=== PATIENT | female | born 1965 | race Caucasian/White ===

== ENCOUNTER 2017-01-08 11:44 | Day surgery (SDC) | payer OTHER ==
[2017-01-06 14:25] VITALS: BMI 29.8
[~2017-01-08 11:44] MED LIST: ACETAMINOPHEN TAB 500 MG TAB PO ONE; DEXAMETHASONE SOD PHOSPHATE 10 MG/ML 1 ML VIAL IV ONE; DEXAMETHASONE SOD PHOSPHATE 4 MG/ML 1 ML VIAL IV ONE; FAMOTIDINE 20 MG/2 ML VIAL IV ONE; HYDROmorphone 1 MG/ML 1 ML SYRINGE IVP PRN; LACTATED RINGERS 1,000 ML IV SCH; LIDOCAINE 1% 20 ML VIAL (10MG/ML) FOR IV START INTRADERMA PRN; MIDAZOLAM 2 MG/2 ML VIAL IV PRN; ONDANSETRON 4 MG/2 ML VIAL IVP ONE; SCOPOLAMINE 1.5MG/72HR PATCH TRANSDERM ONE; ceFAZolin 2 GM in SODIUM CHLORIDE 0.9% 100 ML IVPB ONE
[2017-01-08] MEDS ORDERED: PROPOFOL 10 MG/ML 20 ML VIAL IV ONE (15:07)
[2017-01-08] MEDS ORDERED: MIDAZOLAM 2 MG/2 ML VIAL ONE (15:07)
[2017-01-08] MEDS ORDERED: SUCCINYLCHOLINE CHLORIDE VIAL 200 MG/10 ML VIAL IV ONE (15:07)
[2017-01-08] MEDS ORDERED: fentaNYL (PF) 50 MCG/ML 2 ML AMP ONE (15:07)
[2017-01-08] MEDS ORDERED: LIDOCAINE 1% INJ 10MG/ML (20 ML MDV) ONE (15:07)
[2017-01-08] MEDS ORDERED: LIDOCAINE 1%-EPI 1:100,000 20 ML VIAL SQ ONE ×2 (15:46)
[2017-01-08] MEDS ORDERED: BUPIVACAIN-EPI 0.5%-1:200,000 30 ML VIAL SQ ONE ×2 (15:46)
--- NOTE | 2017-01-08 17:11 | P.OP ---
Date of Procedure: 01/08/17 Preoperative Diagnosis: Left thyroid nodule Fate 3 suspicious Postoperative Diagnosis: Same Procedure(s) Performed: Left thyroid lobectomy with the use of a nerve integrity monitor Anesthesia: MARVA Surgeon: Alhaji Olson Estimated Blood Loss (ml): 20 Pathology: other (Left thyroid lobe) Condition: stable Disposition: PACU Indications for Procedure: This patient was found have a thyroid nodule and a fine-needle aspiration came back as a Fate 3. Genetic molecular testing was positive giving us in approximately 40% chance of a differentiated thyroid carcinoma. The lesion is relatively small measuring 1.1 cm. I did review the results of the patient's pathology risks benefits alternative therapies. Risks of bleeding, infection, need for secondary surgery, vocal cord paralysis, calcium abnormalities etc. were all discussed. Consent was obtained and all questions were answered. Operative Findings: Left thyroid nodule was noted. Left lobe was removed. Recurrent laryngeal nerve was intact. Description of Procedure: OPERATIVE FINDINGS- LEFT Thyroid nodule identified and consistent with the ultrasound. SUMMARY: This patient was taken to the operative room and placed in a standard thyroidectomy position with the head elevated and the head in slight extension. The neck was sterilely prepped and draped in the usual fashion. We used a DuraPrep drape. The patient underwent preoperative antibiotic administration. Patient had a functioning IV line in and was monitored throughout the entire case by the department of anesthesia. An incision was was made after it was marked and the previous scar was removed with a 15 blade and delicate plastic scissors and a Brown-Adson forceps. Dissection was carried down through the platysmas muscle to the strap muscles and superior and inferiorly based flaps were developed. We elevated the skin and subcutaneous flaps from the hyoid to the manubrium. We identified the strap muscles in the midline. We divided the strap muscles and utilized self-retaining retractors. We identified the isthmus. An dissection was carried out on the LEFT thyroid lobe. We utilized a nerve integrity monitor during this entire case. Our dissection was carried out inferiorly and the recurrent laryngeal nerve was identified and monitored and watched through the entire case to preserve this structure. We confirmed its identity with use of a probe with the nerve integrity monitor. We also confirmed its integrity at the end of the case prior to closure. Our dissection continued superiorly where the middle thyroid vessels were again applied and ligated with a ligature. The superior vascular pedicle was also ligated with use of the LigaSure. The parathyroid glands were identified and reflected away from the thyroid gland. The parathyroid glands appeared healthy. They had good blood supply. We continued our dissection of the thyroid off of Lawrence's ligament. The nodule was also identified and was adherent to the recurrent laryngeal nerve but was dissected off the nerve carefully and completely. The left thyroid lobe was completely removed and no remnant thyroid tissue was identified. There was no signs of any lymphadenopathy noted. Gelfoam was placed into the surgical site after a copious amount of irrigation. The strap muscles were reapproximated with use of a 40 rapid Vicryl in a running locking fashion. We elected not to place a drain as there was minimal bleeding. We closed the platysmas layer with use of 4-0 Vicryl in a running locking fashion. The subcutaneous skin was closed with 4-0 Monocryl. The final skin closure was with a 6-0 Prolene. Steri-Strips were applied. A modest pressure dressing utilizing Medipore tape was also applied. The patient tolerated this procedure well and was taken to postanesthesia recovery in excellent condition. The recurrent laryngeal nerve was tested prior to closure and was functioning with use of an NIM monitor.
[2017-01-08] MEDS ORDERED: ONDANSETRON 4 MG/2 ML VIAL IVP PRN (17:13)
[2017-01-08] MEDS ORDERED: NALOXONE 0.4 MG/ML 1 ML VIAL IV PRN (17:13)
[2017-01-08] MEDS ORDERED: ACETAMINOPHEN TAB 325 MG TAB PO PRN (17:13)
[2017-01-08] MEDS ORDERED: PROMETHAZINE 25 MG TAB PO PRN (17:13)
[2017-01-08] MEDS ORDERED: methylPREDNISolone SOD SUCCI 125 MG/2 ML VIAL IVP ONE (17:36)
[2017-01-08] MEDS: HYDROcodone/APAP 5-325MG 1 EACH TAB PO PRN (18:30)
--- NOTE | 2017-01-08 18:30 | P.PN ---
Subjective Principal diagnosis: Recheck This patient has developed a little hoarseness after surgery. I placed a pediatric laryngoscope and viewed the vocal cords. The left vocal cord is weak. The nerve integrity monitor demonstrated good function and I expect this to be a temporary issue. We will treat her with steroids and I did discuss with her and her family. The nerve was right on the tumor and required some stretching to separate the nerve from the tumor and I anticipate that this stretching is the probable cause of this weakness. Objective - Vital Signs Vital signs: Vital Signs Temp 98 F 01/08/17 17:09 Pulse 89 01/08/17 18:00 Resp 16 01/08/17 18:00 BP 136/74 01/08/17 18:00 Pulse Ox 94 L 01/08/17 18:00 Intake & Output 01/07/17 01/08/17 01/08/17 18:59 06:59 18:59 Intake Total 1400 Output Total 10 Balance 1390 Intake: IV 1400 Output: Estimated Blood Loss 10 - Constitutional General appearance: Present: average body habitus - EENT EENT Comment(s): Voice is hoarse. Incision looks good. No hematomas noted. Eyes: Present: PERRLA ENT: Present: normal oropharynx - Integumentary Integumentary: Present: normal turgor - Psychiatric Psychiatric: Present: A&O x's 3 Assessment and Plan (1) Post-operative pain Status: Acute Plan: Her pain is being well controlled with [employer]. She has a slight weakness to the left vocal cord with some hoarseness which I anticipate to be a temporary issue. Steroid therapy will be instituted. Time with Patient: Less than 30
[2017-01-08] MEDS: D5-0.45% NACL WITH KCL 20MEQ/L 1,000 ML IV SCH (19:36)
[2017-01-08] MEDS: methylPREDNISolone SOD SUCCI 125 MG/2 ML VIAL IV SCH (23:43)
[2017-01-08] MEDS: ceFAZolin 2 GM in SODIUM CHLORIDE 0.9% 100 ML IVPB SCH (23:45)
[2017-01-09] MEDS: HYDROcodone/APAP 5-325MG 1 EACH TAB PO PRN ×2 (00:36→07:34)
[2017-01-09] MEDS: methylPREDNISolone SOD SUCCI 125 MG/2 ML VIAL IV SCH (05:54)
--- NOTE | 2017-01-09 06:45 | P.DS ---
Providers Date of admission: Jan 08 2017 Expected date of discharge: 01/09/17 Attending physician: Alhaji Olson Consults: none Primary care physician: Rosangela Pierre - Discharge Diagnosis(es) (1) Post-operative pain Pt has done well after surgery and is ready to be discharged Current Visit: Yes Status: Acute Hospital Course: Uneventful doing well calcium's are fine Pertinent Studies: calcium Procedures: thyroid lobectomy L Patient Condition at Discharge: Good Plan - Discharge Summary New Discharge Prescriptions: Amoxicillin/Potassium Clav [Augmentin 875-125 Tablet] 1 each PO Q12HR #20 tab Hydrocodone/Acetaminophen [[place] 5-325] 1 - 2 each PO Q6HR PRN #50 tab PRN Reason: Pain predniSONE 20 mg PO DIRECTED #5 tab predniSONE 20 mg PO DIRECTED #15 tab Discharge Medication List Dexlansoprazole [Dexilant] 60 mg PO Q48H 10/01/15 [History] Natural Hormone Replacement PRN 01/06/17 [History] Npthyroid 60 mg PO BID 01/06/17 [History] Amoxicillin/Potassium Clav [Augmentin 875-125 Tablet] 1 each PO Q12HR #20 tab [Rx] Hydrocodone/Acetaminophen [[place] 5-325] 1 - 2 each PO Q6HR PRN #50 tab 01/08/17 [Rx] predniSONE 20 mg PO DIRECTED #15 tab 01/08/17 [Rx] predniSONE 20 mg PO DIRECTED #5 tab 01/08/17 [Rx] Follow up Appointment(s)/Referral(s): Alhaji Olson DO [Doctor of Osteopathic Medicine] - 1 Week Patient Instructions/Handouts: *Surgery [facility] - ([facility]) Thyroidectomy Post-Op Instructions Activity/Diet/Wound Care/Special Instructions: Rest with head elevated No heavy lifting or bending Keep Steri-Strips dry Do not extend her head backwards Call me if it is any problems Drink lots of water Take a deep breath before swallowing Discharge Disposition: HOME SELF-CARE
[2017-01-09] MEDS: ceFAZolin 2 GM in SODIUM CHLORIDE 0.9% 100 ML IVPB SCH (07:59)
[2017-01-09 08:15] VITALS: BP 153/86; PULSE 102; RESP 20; TEMP 97
[2017-01-09] MEDS: D5-0.45% NACL WITH KCL 20MEQ/L 1,000 ML IV SCH (10:30)
== END 2017-01-09 10:30 | disposition home or self-care (01) ==
LOC: OR 11:44 → 6PED 16:57 → OR 01-09 10:30
PROVIDERS: ATTEND Otolaryngology
DX: C73 Malignant neoplasm of thyroid gland (principal); K21.9 Gastro-esophageal reflux disease without esophagitis; Z79.899 Other long term (current) drug therapy; Z79.51 Long term (current) use of inhaled steroids; Z91.018 Allergy to other foods; Z91.09 Other allergy status, other than to drugs and biological substances
CPT/HCPCS: 82310 ×2; 88307; 60220; C1762; J2250; J0330; J1100; J2930 ×2; J0690 ×2; J2405; J2001; J3010; J2704

== ENCOUNTER → 2017-04-08 | Outpatient (CLI) | payer OTHER | END | disposition home or self-care (01) | LOC: LABWHC1 17:15 | PROVIDERS: ATTEND Otolaryngology | DX: E03.9 Hypothyroidism, unspecified (principal) | CPT/HCPCS: 36415; 84439; 84443 ==

== ENCOUNTER → 2017-04-13 | Outpatient (CLI) | payer OTHER ==
--- NOTE | 2017-04-14 09:29 | MM ---
Reason for exam: screening (asymptomatic). Last mammogram was performed 1 year and 3 months ago. History: Patient is postmenopausal and has history of other cancer at age 38. Family history of breast cancer in maternal aunt at age 50. Physical Findings: A clinical breast exam by your physician is recommended on an annual basis and results should be correlated with mammographic findings. MG 3D Screening Mammo W/Cad Bilateral CC and MLO view(s) were taken. Prior study comparison: January 10, 2016, bilateral MG 3d screening mammo w/cad. July 14, 2014, right breast MG work up mamm w CAD RT. July 10, 2014, bilateral MG screening mammo w CAD. The breast tissue is heterogeneously dense. This may lower the sensitivity of mammography. Finding: There are few typically benign round calcifications in the left breast. Asymmetric breast tissue in the right breast is stable. There is no discrete abnormality. ASSESSMENT: Benign, BI-RAD 2 RECOMMENDATION: Routine screening mammogram of both breasts in 1 year.
== END | disposition home or self-care (01) ==
LOC: RADMAMWWP 10:55
PROVIDERS: ATTEND Internal Medicine
DX: Z12.31 Encounter for screening mammogram for malignant neoplasm of breast (principal)
CPT/HCPCS: 77063; G0202

== ENCOUNTER → 2017-05-22 | Outpatient (CLI) | payer OTHER | END | disposition home or self-care (01) | LOC: LABWHC1 13:53 | PROVIDERS: ATTEND Otolaryngology | DX: E03.9 Hypothyroidism, unspecified (principal) | CPT/HCPCS: 36415; 84439; 84443 ==

== ENCOUNTER → 2017-06-26 | Outpatient (CLI) | payer OTHER | END | disposition home or self-care (01) | LOC: LABWHC1 10:11 | PROVIDERS: ATTEND Otolaryngology | DX: E03.9 Hypothyroidism, unspecified (principal) | CPT/HCPCS: 36415; 84439; 84443 ==

== ENCOUNTER → 2017-09-28 | Outpatient (CLI) | payer OTHER ==
[2017-09-28 11:07] LABS: T4, Free (Free Thyroxine) 0.93 ng/dL (0.78-2.19)
== END | disposition home or self-care (01) ==
LOC: LABWHC1 10:23
PROVIDERS: ATTEND Otolaryngology
DX: E03.9 Hypothyroidism, unspecified (principal)
CPT/HCPCS: 36415; 84439; 84443

== ENCOUNTER → 2018-02-08 | Outpatient (CLI) | payer OTHER ==
[2018-02-08 09:04] LABS: T4, Free (Free Thyroxine) 0.86 ng/dL (0.78-2.19)
== END | disposition home or self-care (01) ==
LOC: LABWHC1 07:11
PROVIDERS: ATTEND Obstetrics & Gynecology
DX: E03.9 Hypothyroidism, unspecified (principal); N95.1 Menopausal and female climacteric states
CPT/HCPCS: 36415; 82607; 82670; 83001; 84403; 84439; 84443

== ENCOUNTER 2018-02-14 10:17 | Emergency (ER) | payer OTHER ==
[2018-02-14 10:33] VITALS: BP 149/90; PULSE 88; RESP 18; TEMP 99.2
[2018-02-14] MEDS ORDERED: ACETAMINOPHEN TAB 500 MG TAB PO STA (10:47)
[2018-02-14 11:14] LABS: Basophils % (A) 0 %; Eosinophils # (A) 0.2 k/uL (0-0.7); Eosinophils % (A) 2 %; HCT 42.7 % (34.0-46.0); HGB 14.8 gm/dL (11.4-16.0); Lymphocytes # (A) 1.9 k/uL (1.0-4.8); Lymphocytes % (A) 16 %; MCH 31.2 pg (25.0-35.0); MCHC 34.7 g/dL (31.0-37.0); Mean Platelet Volume 6.9; Monocytes # (A) 0.6 k/uL (0-1.0); Monocytes % (A) 5 %; Neutrophils # (A) 8.8 k/uL (1.3-7.7); Neutrophils % (A) 76 %; Platelet Count 243 k/uL (150-450); RBC 4.74 m/uL (3.80-5.40); RDW 13.6 % (11.5-15.5); WBC 11.6 k/uL (3.8-10.6)
[2018-02-14 11:23] LABS: ALT 31 U/L (9-52); AST 20 U/L (14-36); Albumin 4.1 g/dL (3.5-5.0); Alkaline Phosphatase 65 U/L (38-126); Anion Gap 12 mmol/L; Blood Urea Nitrogen 12 mg/dL (7-17); Calcium 9.4 mg/dL (8.4-10.2); Carbon Dioxide 28 mmol/L (22-30); Chloride 102 mmol/L (98-107); Glucose 101 mg/dL (74-99); Potassium 3.7 mmol/L (3.5-5.1); Sodium 142 mmol/L (137-145); Total Bilirubin 0.4 mg/dL (0.2-1.3); Total Protein 6.4 g/dL (6.3-8.2)
--- NOTE | 2018-02-14 11:33 | XR ---
PROCEDURE: XR shoulder complete RT 3 views DATE AND TIME: 02/14/2018 11:16 AM REFERRING PHYSICIAN: Cruzito Artis MD CLINICAL INDICATION: [facility], Pain TECHNIQUE: Department protocol. COMPARISON: None FINDINGS: There is no fracture or malalignment. The soft tissues are unremarkable. IMPRESSION: NO ACUTE PROCESS.
--- NOTE | 2018-02-14 12:02 | ED ---
Upper Extremity HPI - General Chief Complaint: Extremity Injury, Upper Stated Complaint: Shoulder Injury Time Seen by Provider: 02/14/18 10:37 Source: patient Mode of arrival: ambulatory Limitations: no limitations - History of Present Illness Initial Comments: 2 years old female complains about right shoulder pain she was working in the yard couple days ago no fall no trauma she feel that her right shoulder has some swelling and she has a hard time ambulating the right arm she is also concerned about a blood clot there. No shortness of breath no chest pain no history of firm DVT or PE in the past. - Related Data Home Medications Medication Instructions Recorded Confirmed Npthyroid 100 mcg PO DAILY 01/06/17 02/14/18 Allergies Allergy/AdvReac Type Severity Reaction Status Date / Time gluten Allergy Diarrhea Verified 02/14/18 10:33 Review of Systems ROS Statement: Those systems with pertinent positive or pertinent negative responses have been documented in the HPI. ROS Other: All systems not noted in ROS Statement are negative. 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 removed, removed left lobe of thyroid Past Anesthesia/Blood Transfusion Reactions: No Reported Reaction Past Psychological History: No Psychological Hx Reported Smoking Status: Never smoker Past Alcohol Use History: Occasional Past Drug Use History: None Reported - Past Family History Mother Additional Family Medical History / Comment(s): stroke age 65, dementia Father Family Medical History: Cancer Additional Family Medical History / Comment(s): melanoma with mets, kidney General Exam - General Exam Comments Initial Comments: General: The patient is awake and alert, in no distress, and does not appear acutely ill. Skin: Skin is warm and dry and no rashes or lesions are noted. Eye: Pupils are equal, round and reactive to light, extra-ocular movements are intact; there is normal conjunctiva bilaterally. Ears, nose, mouth and throat: There are moist mucous membranes and no oral lesions. Neck: The neck is supple, there is no tenderness or JVD. Cardiovascular: There is a regular rate and rhythm. No murmur, rub or gallop is appreciated. Respiratory: To auscultation bilateral, no wheezing no rhonchi no distress respiratory cooper noticed Gastrointestinal: Soft, non-distended, non-tender abdomen without masses or organomegaly noted. There is no rebound or guarding present. Bowel sounds are unremarkable. Back: There is no tenderness to palpation in the midline. There is no obvious deformity. Musculoskeletal: Range of motion of the right shoulder is compromised especially abduction and internal rotation, patient is tender over the deltoid no tenderness noticed over the before meals joint area distal arm has no neurovascular compromise cord radial and ulnar pulses and good capillary refill no motor deficits noticed in the distal right upper extremity Neurological: CN II-XII intact, Cranial nerves III through XII are intact. There are no obvious motor or sensory deficits. Coordination appears grossly intact. Speech is normal. Psychiatric: Cooperative, appropriate mood & affect, normal judgment. Limitations: no limitations Course Vital Signs 02/14/18 10:30 Temperature 99.2 F Pulse Rate 88 Respiratory 18 Rate Blood Pressure 149/90 O2 Sat by Pulse 99 Oximetry Reassessment revealed d-dimer is normal CBC is unremarkable right shoulder x- rays normal these findings were discussed with the patient, patient was advised to use Tylenol or Motrin on an as-needed basis increase the activity at the right shoulder as tolerated and follow with family doctor or return to the ER if symptoms get worse Medical Decision Making - Lab Data Result diagrams: 02/14/18 11:04 02/14/18 11:04 Lab Results 02/14/18 02/14/18 02/14/18 Range/Units 11:04 11:04 11:04 WBC 11.6 H (3.8-10.6) k/uL RBC 4.74 (3.80-5.40) m/uL Hgb 14.8 (11.4-16.0) gm/dL Hct 42.7 (34.0-46.0) % MCV 90.0 (80.0-100.0) fL MCH 31.2 (25.0-35.0) pg MCHC 34.7 (31.0-37.0) g/dL RDW 13.6 (11.5-15.5) % Plt Count 243 (150-450) k/uL Neutrophils % 76 % Lymphocytes % 16 % Monocytes % 5 % Eosinophils % 2 % Basophils % 0 % Neutrophils # 8.8 H (1.3-7.7) k/uL Lymphocytes # 1.9 (1.0-4.8) k/uL Monocytes # 0.6 (0-1.0) k/uL Eosinophils # 0.2 (0-0.7) k/uL Basophils # 0.0 (0-0.2) k/uL D-Dimer 0.19 (<0.60) mg/L FEU Sodium 142 (137-145) mmol/L Potassium 3.7 (3.5-5.1) mmol/L Chloride 102 (98-107) mmol/L Carbon Dioxide 28 (22-30) mmol/L Anion Gap 12 mmol/L BUN 12 (7-17) mg/dL Creatinine 0.68 (0.52-1.04) mg/dL Est GFR (CKD-EPI)AfAm >90 (>60 ml/min/1.73 sqM) Est GFR (CKD-EPI)NonAf >90 (>60 ml/min/1.73 sqM) Glucose 101 H (74-99) mg/dL Calcium 9.4 (8.4-10.2) mg/dL Total Bilirubin 0.4 (0.2-1.3) mg/dL AST 20 (14-36) U/L ALT 31 (9-52) U/L Alkaline Phosphatase 65 (38-126) U/L Total Protein 6.4 (6.3-8.2) g/dL Albumin 4.1 (3.5-5.0) g/dL Disposition Clinical Impression: Right shoulder tendinitis Disposition: HOME SELF-CARE Condition: Good Instructions: Tendinitis (ED) Is patient prescribed a controlled substance at d/c from ED?: No Referrals: Rosangela Pierre MD [Primary Care Provider] - 1-2 days
== END 2018-02-14 12:19 | disposition home or self-care (01) ==
LOC: EC 10:17
DX: M75.91 Shoulder lesion, unspecified, right shoulder (principal); E07.9 Disorder of thyroid, unspecified; Z85.850 Personal history of malignant neoplasm of thyroid; Z85.828 Personal history of other malignant neoplasm of skin; Z79.899 Other long term (current) drug therapy; Z91.048 Other nonmedicinal substance allergy status
CPT/HCPCS: 36415; 80053; 85025; 85379; 99283

== ENCOUNTER → 2018-07-01 | Outpatient (CLI) | payer OTHER ==
[2018-07-01 15:44] LABS: LDL Cholesterol,Calculated 149.8 mg/dL (0.0-131.0); VLDL Calculation 25.2 mg/dL (5.00-40.00)
== END | disposition home or self-care (01) ==
LOC: LABWHC1 07:03
PROVIDERS: ATTEND Internal Medicine
DX: E55.9 Vitamin D deficiency, unspecified (principal); E78.5 Hyperlipidemia, unspecified
CPT/HCPCS: 36415; 80061; 82306

== ENCOUNTER → 2018-08-30 | Outpatient (CLI) | payer OTHER ==
--- NOTE | 2018-09-02 10:41 | MM ---
Reason for exam: screening (asymptomatic). Last mammogram was performed 1 year and 5 months ago. History: Patient is postmenopausal and has history of other cancer at age 38. Family history of breast cancer in maternal aunt at age 50. Physical Findings: A clinical breast exam by your physician is recommended on an annual basis and results should be correlated with mammographic findings. MG 3D Screening Mammo W/Cad Bilateral CC and MLO view(s) were taken. Prior study comparison: April 13, 2017, bilateral MG 3d screening mammo w/cad. January 10, 2016, bilateral MG 3d screening mammo w/cad. The breast tissue is heterogeneously dense. This may lower the sensitivity of mammography. Stable benign calcifications. There is no discrete abnormality. No significant changes when compared with prior studies. ASSESSMENT: Benign, BI-RAD 2 RECOMMENDATION: Routine screening mammogram of both breasts in 1 year.
== END | disposition home or self-care (01) ==
LOC: RADMAMWWP 07:55
PROVIDERS: ATTEND Obstetrics & Gynecology
DX: Z12.31 Encounter for screening mammogram for malignant neoplasm of breast (principal)
CPT/HCPCS: 77063; 77067

== ENCOUNTER → 2018-11-26 | Outpatient (CLI) | payer OTHER ==
[2018-11-26 08:18] LABS: Basophils % (A) 1 %; Eosinophils # (A) 0.2 k/uL (0-0.7); Eosinophils % (A) 4 %; HCT 43.1 % (34.0-46.0); HGB 14.2 gm/dL (11.4-16.0); Lymphocytes # (A) 1.6 k/uL (1.0-4.8); Lymphocytes % (A) 32 %; MCH 30.4 pg (25.0-35.0); MCV 92.1 fL (80.0-100.0); Mean Platelet Volume 7.2; Monocytes # (A) 0.3 k/uL (0-1.0); Monocytes % (A) 5 %; Neutrophils # (A) 2.8 k/uL (1.3-7.7); Neutrophils % (A) 56 %; Platelet Count 260 k/uL (150-450); RBC 4.68 m/uL (3.80-5.40); RDW 13.1 % (11.5-15.5)
[2018-11-26 16:29] LABS: Albumin/Globulin Ratio 2.35 (1.60-3.17); Anion Gap 6.5 mmol/L (4.00-12.00); Calcium 8.9 mg/dL (8.7-10.3); Carbon Dioxide 27.5 mmol/L (21.6-31.8); Globulin 1.7 g/dL (1.6-3.3); LDL Cholesterol,Calculated 158.8 mg/dL (0.0-131.0); Potassium 3.8 mmol/L (3.5-5.5); Total Bilirubin 0.4 mg/dL (0.2-1.2); Total Protein 5.7 g/dL (6.2-8.2); VLDL Calculation 21.2 mg/dL (5.00-40.00)
[2018-11-26 20:04] LABS: Hemoglobin A1C 5.8 % (4.0-6.0)
== END ==
LOC: LABWHC1 07:12
PROVIDERS: ATTEND Internal Medicine
DX: E03.9 Hypothyroidism, unspecified (principal); E55.9 Vitamin D deficiency, unspecified; K21.9 Gastro-esophageal reflux disease without esophagitis; R73.09 Other abnormal glucose; Z13.6 Encounter for screening for cardiovascular disorders
CPT/HCPCS: 36415; 80053; 80061; 82306; 83036; 84443; 85025

== ENCOUNTER → 2019-01-28 | Outpatient (CLI) | payer OTHER | END | disposition home or self-care (01) | LOC: LABWHC1 08:40 | PROVIDERS: ATTEND Obstetrics & Gynecology | DX: E34.50 Androgen insensitivity syndrome, unspecified (principal); N95.1 Menopausal and female climacteric states | CPT/HCPCS: 36415; 82670; 83001; 84403 ==

== ENCOUNTER → 2019-03-04 | Outpatient (CLI) | payer OTHER ==
[2019-03-04 10:31] LABS: Ionized Calcium 4.9 mg/dL (4.5-5.3)
[2019-03-04 15:53] LABS: LDL Cholesterol,Calculated 78.8 mg/dL (0.0-131.0); VLDL Calculation 19.2 mg/dL (5.00-40.00)
[2019-03-04 16:28] LABS: T4, Free (Free Thyroxine) 0.8 ng/dL (0.80-1.80)
== END | disposition home or self-care (01) ==
LOC: LABWHC1 09:04
PROVIDERS: ATTEND Otolaryngology
DX: E04.1 Nontoxic single thyroid nodule (principal); R53.83 Other fatigue
CPT/HCPCS: 36415; 80061; 82306; 82330; 84439

== ENCOUNTER → 2019-09-29 | Outpatient (CLI) | payer OTHER ==
[2019-09-29 08:35] LABS: Basophils % (A) 1 %; Eosinophils # (A) 0.2 k/uL (0-0.7); Eosinophils % (A) 4 %; HCT 41.2 % (34.0-46.0); Lymphocytes # (A) 1.5 k/uL (1.0-4.8); Lymphocytes % (A) 31 %; MCH 31.1 pg (25.0-35.0); MCV 91.4 fL (80.0-100.0); Mean Platelet Volume 7.8; Monocytes # (A) 0.3 k/uL (0-1.0); Monocytes % (A) 6 %; Neutrophils # (A) 2.8 k/uL (1.3-7.7); Neutrophils % (A) 56 %; Platelet Count 242 k/uL (150-450); RDW 12.9 % (11.5-15.5); WBC 4.9 k/uL (3.8-10.6)
[2019-09-29 16:32] LABS: African American GFR (CKD) 113.8 (60.0-200.0); Albumin 4.2 g/dL (3.80-4.90); Albumin/Globulin Ratio 2.47 (1.60-3.17); Anion Gap 6.4 mmol/L (4.00-12.00); BUN/Creat Ratio 15.71 Ratio (12.00-20.00); Calcium 8.9 mg/dL (8.7-10.3); Carbon Dioxide 29.6 mmol/L (21.6-31.8); Chol/HDL Ratio 4.35; Globulin 1.7 g/dL (1.6-3.3); LDL Cholesterol,Calculated 155.4 mg/dL (0.0-131.0); Non-African American GFR(CKD) 98.2 (60.0-200.0); Potassium 3.9 mmol/L (3.5-5.5); Total Bilirubin 0.5 mg/dL (0.2-1.2); Total Protein 5.9 g/dL (6.2-8.2); VLDL Calculation 18.6 mg/dL (5.00-40.00)
[2019-09-29 19:06] LABS: Hemoglobin A1C 5.5 % (4.0-6.0)
== END | disposition home or self-care (01) ==
LOC: LABWHC1 07:45
PROVIDERS: ATTEND Internal Medicine
DX: E03.9 Hypothyroidism, unspecified (principal); E55.9 Vitamin D deficiency, unspecified; K21.9 Gastro-esophageal reflux disease without esophagitis; R73.09 Other abnormal glucose; Z13.6 Encounter for screening for cardiovascular disorders
CPT/HCPCS: 36415; 80053; 80061; 82306; 83036; 84443; 85025

== ENCOUNTER → 2019-10-03 | Outpatient (CLI) | payer OTHER ==
--- NOTE | 2019-10-03 14:06 | MM ---
Reason for exam: screening (asymptomatic). Last mammogram was performed 1 year and 1 month ago. History: Patient has history of other cancer at age 38. Family history of breast cancer in maternal aunt at age 50. Took hormonal contraceptives for 15 years. Taking estrogen for 3 years. Physical Findings: A clinical breast exam by your physician is recommended on an annual basis and results should be correlated with mammographic findings. MG 3D Screening Mammo W/Cad Bilateral CC and MLO view(s) were taken. Prior study comparison: August 30, 2018, bilateral MG 3d screening mammo w/cad. April 13, 2017, bilateral MG 3d screening mammo w/cad. The breast tissue is heterogeneously dense. This may lower the sensitivity of mammography. No suspicious abnormality on the left breast. Right lateral asymmetry at middle depth 9cm from nipple. ASSESSMENT: Incomplete: need additional imaging evaluation, BI-RAD 0 RECOMMENDATION: Special view mammogram of the right breast. If lesion persists on supplemental views, image directed ultrasound is recommended. [facility] will attempt to contact patient to return for supplemental views and ultrasound if indicated.
== END | disposition home or self-care (01) ==
LOC: RADMAMWWP 10:19
PROVIDERS: ATTEND Obstetrics & Gynecology
DX: Z12.31 Encounter for screening mammogram for malignant neoplasm of breast (principal); Z80.3 Family history of malignant neoplasm of breast
CPT/HCPCS: 77063; 77067

== ENCOUNTER → 2019-10-14 | Outpatient (CLI) | payer OTHER ==
--- NOTE | 2019-10-14 12:27 | MM ---
Reason for exam: additional evaluation requested from abnormal screening. Last mammogram was performed less than 1 month ago. History: Patient has history of other cancer at age 38. Family history of breast cancer in maternal aunt at age 50. Took hormonal contraceptives for 15 years. Taking estrogen for 3 years. Physical Findings: Nurse did not find any significant physical abnormalities on exam. MG 3D Work Up W/Cad RT Spot compression CC and LM view(s) were taken of the right breast. Prior study comparison: October 03, 2019, bilateral MG 3d screening mammo w/cad. August 30, 2018, bilateral MG 3d screening mammo w/cad. The breast tissue is heterogeneously dense. This may lower the sensitivity of mammography. Focal asymmetry on 3D tomosynthesis right outer CC middle position not clearly evident on MLO or ML. This finding is changed when compared with previous exams. These results were verbally communicated with the patient and result sheet given to the patient on 10/14/19. ASSESSMENT: Suspicious, BI-RAD 4 RECOMMENDATION: Stereotactic core biopsy of the right breast. (3D stereo CC position) Called Dr. Og's office with mammographic findings. PRELIMINARY REPORT CALLED AND FAXED TO DR. OG ON 10/14/19.
== END | disposition home or self-care (01) ==
LOC: RADMAMWWP 08:43
PROVIDERS: ATTEND Obstetrics & Gynecology
DX: R92.8 Other abnormal and inconclusive findings on diagnostic imaging of breast (principal)
CPT/HCPCS: 77061; 77065

== ENCOUNTER → 2020-02-07 | Outpatient (CLI) | payer OTHER ==
[2020-02-07 12:23] LABS: HCT 43.1 % (34.0-46.0); HGB 14.1 gm/dL (11.4-16.0); MCH 30.4 pg (25.0-35.0); MCHC 32.8 g/dL (31.0-37.0); MCV 92.7 fL (80.0-100.0); Mean Platelet Volume 7.7; Platelet Count 264 k/uL (150-450); RBC 4.65 m/uL (3.80-5.40); RDW 12.8 % (11.5-15.5); WBC 6.7 k/uL (3.8-10.6)
[2020-02-07 20:02] LABS: Estradiol 78.4 pg/mL; Follicle Stimulating Hormone 23.9 mIU/mL
== END | disposition home or self-care (01) ==
LOC: LABWHC1 11:36
PROVIDERS: ATTEND Obstetrics & Gynecology
DX: E03.9 Hypothyroidism, unspecified (principal); E34.50 Androgen insensitivity syndrome, unspecified; N95.1 Menopausal and female climacteric states
CPT/HCPCS: 36415; 82670; 83001; 84144; 84403; 84443; 85027

== ENCOUNTER → 2020-03-21 | Outpatient (CLI) | payer OTHER ==
--- NOTE | 2020-03-21 09:14 | US ---
EXAMINATION TYPE: US abdomen complete DATE OF EXAM: 03/21/2020 COMPARISON: NONE CLINICAL HISTORY: K21.9 GERD w/o esophagitis, M54.6 pain in tspine. Pain exam limited due to body hab itus EXAM MEASUREMENTS: Liver Length: 17 cm Gallbladder Wall: .2 cm CBD: .5 cm Spleen: 11 cm Right Kidney: 10.7 x 5.1 x 4.0 cm Left Kidney: 10.6 x 5.1 x 4.0 cm Pancreas: Obscured by bowel gas Liver: Increased attenuation Gallbladder: No stones seen Evidence for sonographic Jones's sign: no CBD: wnl Spleen: wnl Right Kidney: wnl Left Kidney: wnl Upper IVC: wnl Abd Aorta: wnl The liver is mildly heterogenous. The intrahepatic portion of the IVC and proximal abdominal aorta ar e within normal limits. There is no evidence of cholelithiasis. Common bile duct is unremarkable. The visualized portions of the pancreas are homogenous. The spleen is unremarkable. Kidneys are sym metric and free of hydronephrosis. No renal lesions are seen. IMPRESSION: Fatty liver.
== END | disposition home or self-care (01) ==
LOC: RADUSWWP 08:37
PROVIDERS: ATTEND Family Medicine
DX: K76.0 Fatty (change of) liver, not elsewhere classified (principal)
CPT/HCPCS: 76700

== ENCOUNTER → 2020-05-17 | Outpatient (CLI) | payer OTHER ==
[2020-05-17 08:06] LABS: Ionized Calcium 4.8 mg/dL (4.5-5.3)
[2020-05-17 12:09] LABS: Calcium 8.7 mg/dL (8.7-10.3)
[2020-05-17 12:24] LABS: T4, Free (Free Thyroxine) 1.3 ng/dL (0.80-1.80)
== END | disposition home or self-care (01) ==
LOC: LABWHC1 07:10
PROVIDERS: ATTEND Otolaryngology
DX: E04.1 Nontoxic single thyroid nodule (principal); R53.83 Other fatigue
CPT/HCPCS: 36415; 82310; 82330; 84439; 84443

== ENCOUNTER → 2020-11-02 | Outpatient (CLI) | payer OTHER ==
--- NOTE | 2020-11-05 11:43 | MM ---
Reason for exam: screening (asymptomatic). Last mammogram was performed 1 year and 1 month ago. History: Patient has history of other cancer at age 38. Family history of breast cancer in maternal aunt at age 50. Took hormonal contraceptives for 15 years. Taking estrogen for 3 years. Took other hormone beginning at age 52. Physical Findings: A clinical breast exam by your physician is recommended on an annual basis and results should be correlated with mammographic findings. MG 3D Screening Mammo W/Cad Bilateral CC and MLO view(s) were taken. Prior study comparison: October 14, 2019, right breast MG 3d work up w/cad RT. October 03, 2019, bilateral MG 3d screening mammo w/cad. The breast tissue is heterogeneously dense. This may lower the sensitivity of mammography. Finding: There are typically benign round, grouped/clustered calcifications in the left breast. There is no discrete abnormality. ASSESSMENT: Benign, BI-RAD 2 RECOMMENDATION: Routine screening mammogram of both breasts in 1 year.
== END | disposition home or self-care (01) ==
LOC: RADMAMWWP 08:14
PROVIDERS: ATTEND Obstetrics & Gynecology
DX: Z12.31 Encounter for screening mammogram for malignant neoplasm of breast (principal)
CPT/HCPCS: 77063; 77067

== ENCOUNTER → 2021-03-15 | Outpatient (CLI) | payer OTHER | END | disposition home or self-care (01) | LOC: LABWHC1 07:58 | PROVIDERS: ATTEND Otolaryngology | DX: J30.89 Other allergic rhinitis (principal) | CPT/HCPCS: 36415 ==

== ENCOUNTER → 2021-12-13 | Outpatient (CLI) | payer OTHER ==
--- NOTE | 2021-12-16 11:50 | MM ---
Reason for exam: screening (asymptomatic). Last mammogram was performed 1 year and 1 month ago. History: Patient has history of other cancer at age 38. Family history of breast cancer in maternal aunt at age 50. Took hormonal contraceptives for 15 years. Taking estrogen for 3 years. Took other hormone for 3 years beginning at age 52. Physical Findings: A clinical breast exam by your physician is recommended on an annual basis and results should be correlated with mammographic findings. MG 3D Screening Mammo W/Cad Bilateral CC and MLO view(s) were taken. Prior study comparison: November 02, 2020, bilateral MG 3d screening mammo w/cad. October 14, 2019, right breast MG 3d work up w/cad RT. The breast tissue is heterogeneously dense. This may lower the sensitivity of mammography. There is no discrete abnormality. No significant changes when compared with prior studies. ASSESSMENT: Negative, BI-RAD 1 RECOMMENDATION: Routine screening mammogram of both breasts in 1 year.
== END | disposition home or self-care (01) ==
LOC: RADMAMWWP 16:14
PROVIDERS: ATTEND Obstetrics & Gynecology
DX: Z12.31 Encounter for screening mammogram for malignant neoplasm of breast (principal); Z80.3 Family history of malignant neoplasm of breast
CPT/HCPCS: 77063; 77067

== ENCOUNTER 2022-08-24 06:39 | Emergency (ER) | payer SELFPAY ==
[2022-08-24 06:48] VITALS: RESP 18
[2022-08-24] MEDS ORDERED: IBUPROFEN 800 MG TAB PO STA (07:15)
--- NOTE | 2022-08-24 07:22 | ED ---
Back Pain HPI - General Chief Complaint: Back Pain/Injury Stated Complaint: Back pain Time Seen by Provider: 08/24/22 07:08 Source: patient, RN notes reviewed Mode of arrival: ambulatory Limitations: no limitations - History of Present Illness Initial Comments: This is a 57-year-old female who presents to the emergency department for lower back pain. States that a week ago, she was at a concert, and leaning in an irregular way. On the ride home, she started to develop lower back pain near the tailbone, and had difficulty getting out of the car due to the pain. Pain is described as being in the midline and right side. She went to urgent care a couple of days later, and was given a prescription for prednisone and muscle relaxants. States that this did not improve her pain whatsoever. Whenever she has had back pain in the past, she states that it often resolves over the course of a couple of days, it never persists like this pain has been. The pain is continuing to worsen and she has no improvement with ibuprofen or Tylenol. She received a shot of Toradol yesterday, which was also not beneficial. She feels like the pain is starting to wrap around into the right hip area. Denies any loss of bowel or bladder control or saddle anesthesia. There is not any radiation of pain into the legs. Denies any fevers, chills, sore throat, cough, dyspnea, chest pain, palpitations, abdominal pain, nausea, vomiting, diarrhea, or headaches. MD Complaint: back pain, back injury Onset/Timin -: week(s) - Related Data Home Medications Medication Instructions Recorded Confirmed Levothyroxine Sodium [Synthroid] 100 mcg PO DAILY 02/14/18 02/14/18 Previous Rx's Medication Instructions Recorded Diclofenac Sodium [Voltaren] 75 mg PO BID PRN #20 tab 08/24/22 HYDROcodone/APAP 5-325MG [Bode 1 tab PO Q6HR PRN 3 Days #12 tab 08/24/22 5-325] Lidocaine 5% Patch [Lidoderm 5% 1 patch TOPICAL DAILY PRN #30 patch 08/24/22 Patch] Allergies Allergy/AdvReac Type Severity Reaction Status Date / Time gluten Allergy Diarrhea Verified 08/24/22 06:47 Review of Systems ROS Statement: Those systems with pertinent positive or pertinent negative responses have been documented in the HPI. ROS Other: All systems not noted in ROS Statement are negative. 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 removed, removed left lobe of thyroid Past Anesthesia/Blood Transfusion Reactions: No Reported Reaction Past Psychological History: No Psychological Hx Reported Smoking Status: Never smoker Past Alcohol Use History: Occasional Past Drug Use History: None Reported - Past Family History Mother Additional Family Medical History / Comment(s): stroke age 65, dementia Father Family Medical History: Cancer Additional Family Medical History / Comment(s): melanoma with mets, kidney General Exam Limitations: no limitations General appearance: alert, in no apparent distress Head exam: Present: atraumatic, normocephalic, normal inspection Respiratory exam: Present: normal lung sounds bilaterally. Absent: respiratory distress, wheezes, rales, rhonchi, stridor Cardiovascular Exam: Present: regular rate, normal rhythm, normal heart sounds. Absent: systolic murmur, diastolic murmur, rubs, gallop, clicks GI/Abdominal exam: Present: soft, normal bowel sounds. Absent: distended, tenderness, guarding, rebound, rigid, pulsatile mass Extremities exam: Present: normal capillary refill. Absent: pedal edema, joint swelling, calf tenderness Back exam: Present: normal inspection. Absent: full ROM (secondary to pain), tenderness, CVA tenderness (R), CVA tenderness (L) Neurological exam: Present: alert, oriented X3, CN II-XII intact Psychiatric exam: Present: normal affect, normal mood Skin exam: Present: warm, dry, intact, normal color. Absent: rash Course Vital Signs 08/24/22 08/24/22 06:45 09:35 Temperature 98 F 98.0 F Pulse Rate 77 78 Respiratory 18 18 Rate Blood Pressure 189/94 142/80 O2 Sat by Pulse 96 99 Oximetry Medical Decision Making - Medical Decision Making This is a 57-year-old female who presents to the emergency department for lower back pain. The pain is not significantly reproducible on physical examination. Patient given a lidocaine patch and ibuprofen. She declines anything stronger to treat the pain in the emergency department. My interpretation of the lumbosacral x-ray and hip x-ray identifies no evidence of any fractures or dislocations. She does appear to have [id number] degenerative changes throughout. Due to the significant pain, ultrasound of the abdomen was obtained to evaluate for possible AAA. No evidence of abdominal aortic aneurysm was noted. Patient states that she did seem to have some relief with the lidocaine patch. Rx for lidocaine patches and diclofenac provided. Advised she avoid taking ibuprofen or other anti-inflammatories with the diclofenac. She can however take Tylenol with this. Due to how much the pain is interfering with her daily functioning, I'm willing to provide a short course of Bode. Advised she take this very sparingly when her pain is the most severe and avoid driving or operating machinery when taking it. Information for follow-up with Dr. Andrade was provided. Advised she contact her office tomorrow morning regarding these symptoms to discuss any additional testing or treatment options. Red flag signs and symptoms reviewed with the patient, such as loss of bowel/bladder control and saddle anesthesia, which would necessitate she return to the emergency department immediately. She expresses understanding. Return precautions reviewed in depth, the patient is instructed to return to the emergency department with any new, worsening, or concerning symptoms. Patient verbalized understanding. This case was discussed in detail with the attending ED physician. Presentation, findings, and treatment plan discussed in detail as well. - Lab Data Lab Results 08/24/22 Range/Units 08:24 Urine Color Light Yellow Urine Appearance Clear (Clear) Urine pH 6.5 (5.0-8.0) Ur Specific [place] 1.013 (1.001-1.035) Urine Protein Negative (Negative) Urine Glucose (UA) Negative (Negative) Urine Ketones Negative (Negative) Urine Blood Negative (Negative) Urine Nitrite Negative (Negative) Urine Bilirubin Negative (Negative) Urine Urobilinogen <2.0 (<2.0) mg/dL Ur Leukocyte Esterase Negative (Negative) - Radiology Data Radiology results: report reviewed, image reviewed Disposition Clinical Impression: Lumbosacral pain Disposition: HOME SELF-CARE Instructions (If sedation given, give patient instructions): Acute Low Back Pain (ED) Additional Instructions: Return to the emergency department with any new, worsening, or concerning symptoms. Take the Bode very sparingly when your pain is the most severe. Be aware that this can be sedating and you should avoid driving or operating machinery when taking this. You can use the lidocaine patches daily. The diclofenac can be taken twice a day. If you take the diclofenac, do not take ibuprofen or other anti-inflammatories. You may take Tylenol with the diclofenac. Contact Dr. Andrade's office tomorrow morning for a follow-up appointment and advise that you need additional testing for the severe lower back pain. Follow up with your primary care provider in 1-2 days. Prescriptions: Lidocaine 5% Patch [Lidoderm 5% Patch] 1 patch TOPICAL DAILY PRN #30 patch PRN Reason: Pain HYDROcodone/APAP 5-325MG [Bode 5-325] 1 tab PO Q6HR PRN 3 Days #12 tab PRN Reason: Pain Diclofenac Sodium [Voltaren] 75 mg PO BID PRN #20 tab PRN Reason: Pain Is patient prescribed a controlled substance at d/c from ED?: Yes When asked, does pt state using other controlled substances?: No If prescribed controlled substance>3 days was MAPS reviewed?: Prescribed <3 Days Referrals: Kalyani Griggs MD [Primary Care Provider] - 1-2 days Edmar Griggs MD [Medical Doctor] - 1-2 days
--- NOTE | 2022-08-24 07:57 | XR ---
EXAMINATION TYPE: XR Hip Complete RT DATE OF EXAM: 08/24/2022 7:52 AM INDICATION: Patient age:Female; 57 years old; Reason for study: Pain; COMPARISON: None. TECHNIQUE: The right hip was examined in the frontal and lateral projections FINDINGS: No evidence for acute process, joint dislocation or significant soft tissue swelling. IMPRESSION: No acute process.
--- NOTE | 2022-08-24 07:58 | XR ---
EXAMINATION TYPE: XR lumbosacral spine min 4V DATE OF EXAM: 08/24/2022 7:52 AM INDICATION: Patient age:Female; 57 years old; Reason for study: Pain; COMPARISON: None TECHNIQUE: Frontal, lateral , bilateral oblique and coned in L5-S1 lateral views of the spine. FINDINGS: No evidence of any acute osseous pathology. No evidence of loss of vertebral body height i s seen. There is normal alignment of the lumbar vertebral bodies. Mild scattered disc space narrowing . Multilevel marginal osteophyte formation throughout the visualized spine. There is facet joint arth ropathy throughout the spine. Scattered at least mild neural foraminal stenosis. IMPRESSION: 1. No acute fracture. 2. Mild multilevel disc degeneration.
[2022-08-24 08:28] LABS: Appearance,Urine Clear (Clear); Bilirubin,Urine Negative (Negative); Blood,Urine Negative (Negative); Color,Urine Light Yellow; Glucose,Urine (UA) Negative (Negative); Ketones,Urine Negative (Negative); Leukocyte Esterase,Urine Negative (Negative); Nitrite,Urine Negative (Negative); PH, Urine 6.5 (5.0-8.0); Protein,Urine Negative (Negative); Specific Gravity,Urine 1.013 (1.001-1.035); Urobilinogen,Urine <2.0 mg/dL (<2.0)
[2022-08-24] MEDS ORDERED: LIDOCAINE 5% PATCH TOPICAL SCH (09:00)
--- NOTE | 2022-08-24 09:06 | US ---
EXAMINATION TYPE: US duplex aorta DATE OF EXAM: 08/24/2022 COMPARISON: NONE CLINICAL HISTORY: Lower back and abdominal pain, no injury. TECHNIQUE: Multiple sonographic images of the abdominal aorta are obtained. FINDINGS: EXAM MEASUREMENTS: Abdominal Aorta: Proximal: 2.4cm Mid: 1.6cm Distal: 1.3cm Bifurcation: Right: 1.0cm Left: 1.0cm DRY CAN TENDER NOTES: No ultrasound evidence of AAA, study somewhat limited by overlying bowel gas. IMPRESSION: No evidence for aortic aneurysm.
[2022-08-24 09:42] VITALS: BP 142/80; PULSE 78; TEMP 98
== END 2022-08-24 09:41 | disposition home or self-care (01) ==
LOC: EC 06:39
DX: M54.50 Low back pain, unspecified (principal); E07.9 Disorder of thyroid, unspecified; Z79.890 Hormone replacement therapy; Z91.018 Allergy to other foods
CPT/HCPCS: 72110; 73502; 81003; 93979; 99284

== ENCOUNTER → 2023-01-05 | Outpatient (CLI) | payer BC ==
--- NOTE | 2023-01-06 09:11 | MM ---
Reason for Exam: Screening (asymptomatic). Last mammogram was performed 1 year(s) and 1 month(s) ago. Patient History: Menarche at age 13. First Full-Term at age 16. Hysterectomy at age 38. Postmenopausal. Currently using Estrogen, for 3 years. Patient used Hormonal Contraceptives for 15 years. Maternal aunt had breast cancer, age 50. Risk Values: Myra 5 year model risk: 0.9%. NCI Lifetime model risk: 5.7%. Prior Study Comparison: 10/14/2019 Right Diagnostic Mammogram, [facility]. 11/02/2020 Bilateral Screening Mammogram, [facility]. 12/13/2021 Bilateral Screening Mammogram, [facility]. Tissue Density: There are scattered fibroglandular densities. Findings: Analyzed By CAD. There is no suspicious group of microcalcifications or new suspicious mass in either breast. Overall Assessment: Negative, BI-RAD 1 Management: Screening Mammogram of both breasts in 1 year. . Patient should continue monthly self-breast exams. A clinical breast exam by your physician is recommended on an annual basis. This exam should not preclude additional follow-up of suspicious palpable abnormalities. Note on Myra scores and lifetime risk: 1. A Myra score greater than 3% is considered moderate risk. If this is the case, consider specialist referral to assess eligibility for a risk reducing agent. 2. If overall lifetime risk for the development of breast cancer is 20% or higher, the patient may qualify for future screening with alternating mammogram and breast MRI. Electronically signed and approved by: Arnold Stokes DO
== END | disposition home or self-care (01) ==
LOC: RADMAMWWP 07:26
PROVIDERS: ATTEND Obstetrics & Gynecology
DX: Z12.31 Encounter for screening mammogram for malignant neoplasm of breast (principal); Z78.0 Asymptomatic menopausal state; Z80.3 Family history of malignant neoplasm of breast
CPT/HCPCS: 77063; 77067

== ENCOUNTER → 2024-01-11 | Outpatient (CLI) | payer BC ==
--- NOTE | 2024-01-12 18:49 | MM ---
Reason for Exam: Screening (asymptomatic). Last screening mammogram was performed 12 month(s) ago. Patient History: Menarche at age 13. First Full-Term at age 16. Hysterectomy at age 38. Postmenopausal. Currently using Estrogen, for 3 years. Patient used Hormonal Contraceptives for 15 years. Maternal aunt had breast cancer, age 50. Risk Values: Myra 5 year model risk: 1.0%. NCI Lifetime model risk: 5.6%. Prior Study Comparison: 11/02/2020 Bilateral Screening Mammogram, [facility]. 12/13/2021 Bilateral Screening Mammogram, [facility]. 01/05/2023 Bilateral MG 3D screening mammo w/cad, [facility]. Tissue Density: There are scattered areas of fibroglandular density. Findings: Analyzed By CAD. Unchanged bilateral areas of asymmetric densities. There is no suspicious group of microcalcifications or new suspicious mass in either breast. Overall Assessment: Benign, BI-RAD 2 Management: Screening Mammogram of both breasts in 1 year. . Patient should continue monthly self-breast exams. A clinical breast exam by your physician is recommended on an annual basis. This exam should not preclude additional follow-up of suspicious palpable abnormalities. Note on Myra scores and lifetime risk: 1. A Myra score greater than 3% is considered moderate risk. If this is the case, consider specialist referral to assess eligibility for a risk reducing agent. 2. If overall lifetime risk for the development of breast cancer is 20% or higher, the patient may qualify for future screening with alternating mammogram and breast MRI. Electronically signed and approved by: Judi Flores M.D. Radiologist
== END | disposition home or self-care (01) ==
LOC: RADMAMWWP 08:28
PROVIDERS: ATTEND Obstetrics & Gynecology
DX: Z12.31 Encounter for screening mammogram for malignant neoplasm of breast (principal); Z80.3 Family history of malignant neoplasm of breast; Z78.0 Asymptomatic menopausal state
CPT/HCPCS: 77063; 77067

== ENCOUNTER → 2025-01-11 | Outpatient (CLI) | payer BC ==
--- NOTE | 2025-01-11 09:37 | MM ---
Reason for Exam: Screening (asymptomatic). Last screening mammogram was performed 12 month(s) ago. Patient History: Menarche at age 13. First Full-Term at age 16. Hysterectomy at age 38. Postmenopausal. Currently using Estrogen, for 3 years. Patient used Hormonal Contraceptives for 15 years. Maternal aunt had breast cancer, age 50. Risk Values: Myra 5 year model risk: 1.0%. NCI Lifetime model risk: 5.5%. Prior Study Comparison: 12/13/2021 Bilateral Screening Mammogram, [facility]. 01/05/2023 Bilateral MG 3D screening mammo w/cad, [facility]. 01/11/2024 Bilateral MG 3D screening mammo w/cad, [facility]. Tissue Density: There are scattered areas of fibroglandular density. Findings: Analyzed By CAD. Right breast: There is no suspicious group of microcalcifications or new suspicious mass. Left breast: There is no suspicious group of microcalcifications or new suspicious mass. Overall Assessment: Negative, BI-RAD 1 Management: Screening Mammogram of both breasts in [address] [facility] will attempt to contact patient to return for supplemental views and ultrasound if indicated. Patient should continue monthly self-breast exams. A clinical breast exam by your physician is recommended on an annual basis. This exam should not preclude additional follow-up of suspicious palpable abnormalities. Note on Myra scores and lifetime risk: 1. A Myra score greater than 3% is considered moderate risk. If this is the case, consider specialist referral to assess eligibility for a risk reducing agent. 2. If overall lifetime risk for the development of breast cancer is 20% or higher, the patient may qualify for future screening with alternating mammogram and breast MRI. [facility], , 01/11/2025 9:25 AM. Electronically signed and approved by: Arnold Stokes DO
== END | disposition home or self-care (01) ==
LOC: RADMAMWWP 08:23
PROVIDERS: ATTEND Obstetrics & Gynecology
DX: Z12.31 Encounter for screening mammogram for malignant neoplasm of breast (principal); R92.323 Mammographic fibroglandular density, bilateral breasts; Z78.0 Asymptomatic menopausal state; Z80.3 Family history of malignant neoplasm of breast; Z92.0 Personal history of contraception
CPT/HCPCS: 77063; 77067